=== PATIENT | female | born 1995 | race Caucasian/White ===

== ENCOUNTER 2016-05-04 12:38 | Inpatient (IN) | payer OTHER ==
[~2016-05-04] VITALS: Ht 177.8 cm; Wt 87.9 kg
--- NOTE | ~2016-05-04 | RESCARESUM ---
"PATIENT: BRITTNI SANCHEZ | | [facility] UNIT #: [id number] | [address] AGE/SEX: 20 F : [birth year] | [address] | [place] [address] ADMIT/REG DATE: 05/04/16 | ROOM: [facility] LOC: ADTC | ADTC | Summary of Residential Care Primary [facility] Date of Admission: 05/04/16 Date of Discharge: 05/05/16 Referral Source: [facility] Primary Care Provider Prior to Admission: no doctor listed Admitting Diagnosis: 304.40 Stimulant use disorder-severe, 304.30 Cannabis use disorder- moderate, 305.00 Alcohol use disorder-mild, and 305.10 Tobacco use disorder Per doctors H&P-Spvfpvip-vtpcdtm mood disorder, Major depressive disorder, recurrent, PTSD by history, and Generalized anxiety disorder. Discharge Diagnosis: unchanged Goals Achieved: Client arrived at treatment on 05/04/16 and left AMA by mid day on 05/05/16. She did not successfully complete treatment but had been seen by her counselor 2x, one for her initial appointment and the 2nd on the day she left because she wanted to leave treatment reporting that she doesn't want to hear repetitive information again and she misses her grandma. She denied being suicidal, so counselor did do EMDR to help with relaxation and client reported she felt better. She did sneak out of treatment later that afternoon. Continued Obstacles to Sobriety/Relapse Issues: lack of commitment to treatment/recovery, lack of willingness to follow the MHB requirements, apparent anxiety, missing her grandmother and/or drug cravings. Unresolved Mental health issues possibly due to trauma/PTSD. Family Issues Addressed: no family involvement but client requested to live with her grandmother. x Individual Therapy x Group Therapy x Educational Series on Substance Abuse Parents/Significant Others Attended Family Program Acute Medical Problems During the Course of Treatment Transferred to Hospital During the Course of Treatment Accepting of Substance Abuse Problem x Non-accepting of Substance Abuse Problem Required Psychological or Psychiatric Consultation During the Course of Treatment Completed AA Step # (none) During This Level of Care Significant Incidences During Treatment: client left AMA within 36 hours. Reason For Discharge: PATIENT: BRITTNI SANCHEZ | | [facility] UNIT #: [id number] | [address] AGE/SEX: 20 F : [birth year] | [address] | [place] [address] ADMIT/REG DATE: 05/04/16 | ROOM: [facility] LOC: ADTC | ADTC | Summary of Residential Care Completed Residential TX Goals and Ready For Next Level of Care x Left Tx Against Medical Advice/Treatment Goals Not Complete Completed Residential Tx Goals But Refusing Continuing Care Recommendations Discharged Due to Noncompliance/Treatment Goals not Completed Discharged Earlier Than Planned Due to: Continuing Care Plan/Recommendations: Intensive Partial Care Sponsor Partial Care AA Meetings/NA Meetings Outpatient Co-dependency Services Therapeutic Community 1/2 Way House 3/4 Way House x Mental Health Therapy Marriage Counseling x Other Specific Continuing Care Plan: Client appears to need to be stabilized mentally and attend a Treatment Center that is Dual long-term and may need to be a lock up facility as she has walked out of treatment 3x in past few months. PRIMARY COUNSELOR: Camilla Vitale"
--- NOTE | 2016-05-04 13:25 | NUR ---
ADMISSION NOTE Rights/Responsibilities: Copy given and explained to client. Signed and accepted by client. Client oriented to physical lay out of the ADTC unit, given Big Book and admission packet. A Fitz was assigned. Laquita Client is a 20yr old single female. Came to tx from [facility] where she has been for the past 14 days. Lives in [place], [place]. DOC, Meth, last used 04/22/16, two grams daily. No allergies, Nurse knows about meds. Mother will participate in tx. Was searched no contraband found. Initial paperwork given and guidelines gone over. Doctor was notified.
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
--- NOTE | 2016-05-04 16:43 | NUR ---
Recovery 101 1 hr/ Clients discussed fundamental tools and what is important to work a strong recovery program such as: 12 steps, getting and using a sponsor, meetings/home group, read C.A.L., H.O.W./being honest, service work, HP concepts/spirituality, opening up, slogans, serenity prayer, etc. Also discussed the balance, recovery as way of life, 85% is the living problem and why people still go to meetings for their lifetime.
--- NOTE | 2016-05-04 23:47 | NUR ---
Tech Note: Client attended N.A.Meeting. SE: Coming to treatment
--- NOTE | 2016-05-04 23:59 | NUR ---
Education Note: 1 hour lecture on communication given by counselor.
--- NOTE | 2016-05-05 04:13 | NUR ---
Bed Note: client was in bed with eyes closed and no distress at all bed checks.
--- NOTE | 2016-05-05 10:00 | NUR ---
IS 1 hr/ This counselor met with client who was in crisis and planning to leave, did discuss how this would hurt her and because of being a MHB Commitment and in and out of 3 treatments without completing that she would likely have to go to long-term dual program or even lock up facility if unwilling to complete a treatment. Client was willing to stay she stated, but within 20 minutes she was packing her bags so counselor offered to do EMDR therapy with her and she was relieved that she could do it now, she had asked counselor yesterday how soon can we start? and counselor said maybe by 2nd week, but did make time for her today and she responded well to Safe-Place relaxation and was praised for being good candidate for EMDR therapy. (After session client went to group which seemed like she might stay but ended up missing by mid afternoon or early evening, had snuck out of treatment center.)
--- NOTE | 2016-05-05 11:30 | NUR ---
GROUP 1.5 HRS. 1:10 Client was oriented to purpose and rules of group. She stated she has a lot of anxiety. She is tearful off and on and received a lot of postive support and encouragement from peers. Group discussion on learning to deal with feelings approrpriately. Group read pg. 62 of ALCOHOLICS ANONYMOUS and addressed issues of self-centeredness and being driven by ..."fear, self-delusion, self-seeking and self-pity".
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
--- NOTE | 2016-05-05 17:40 | NUR ---
ech Note: Client is working on Getting Started.
--- NOTE | 2016-05-05 19:31 | NUR ---
DISCHARGE NOTE Clt left AMA without telling staff or peers anything about leaving. Clt had left bewteen 4-5 PM. Leaving lugguage and personal items behind on unit and were packed and put into storage closet.
--- NOTE | 2016-05-06 09:15 | NUR ---
FAXED INFORMATION TO [facility] AND CALLED, The Court Transcriber said she will take information over to Employment Programs Analyst immediately as counselor said she was very anxious and needs to be found as soon as possible. She had denied being suicidal with this counselor on 05/05/16, she voiced she is just sick of the repetition of treatment again, and missing her grandmother.
--- NOTE | 2016-06-15 11:06 | DS ---
ADMIT: 05/04/2016 RM/LOC: [facility] MR#: [id number] [address] [address] BRITTNI SANCHEZ [address] [place] [id number] General Discharge Summary SEX: F AGE: 20 : 1995 ADMISSION DATE: 05/04/2016 DISCHARGE DATE: 05/05/2016 ADMITTING DIAGNOSIS: As per history and physical. FINAL DIAGNOSES: 1. Stimulant/methamphetamine use disorder, severe. 2. Cannabis use disorder, moderate. 3. Alcohol use disorder, mild. 4. Chemical-induced mood disorder. 5. Major depressive disorder, recurrent. 6. Post-traumatic stress disorder by history. 7. Generalized anxiety disorder. 8. Tobacco use disorder. COMPLICATIONS: None. OPERATIONS: None. CLINICAL HISTORY: The patient is a 20-year-old white female, admitted to the residential care program for treatment of her methamphetamine use disorder, as well as cannabis use disorder and past opioid use disorder. The patient comes to treatment after having been at [facility] for psychiatric treatment and evaluation. For details of her pattern of usage and problems associated with her ongoing substance abuse and chemical dependency, please see the clinical history portion of the dictated history and physical. Do note that the patient is a mental health board commitment to the treatment. LABORATORY AND X-RAY SUMMARY: None performed. HOSPITAL COURSE: The patient was admitted to the residential care program on 05/04/2016. She left AMA on her second day of treatment, 05/05/2016. She arrived to treatment as noted on 05/04/2016, met with her primary counselor, JOHN Gao, [facility]. By mid day on 05/05/2016, she walked out AMA. She did not accomplish any of her treatment goals. She had just got involved in both individual and group therapy. She was given the educational series on substance abuse, but had no time to work on any of the assignments. She was non-accepting of her substance abuse problem. She was very argumentative from the start, noting that she did not want to hear repetitive information again and again. She did have one EMDR session with her counselor. The patient walked away from treatment or snuck away from the treatment program later on the afternoon of 05/05/2016. While in treatment, none of her treatment goals were accomplished. She left AMA before any progress could be made. Her condition at discharge was unchanged. It appears that she is still not stable from a psychiatric standpoint. It was recommended that she have further psychiatric treatment and evaluation or consider placement at a dual diagnosis program. It was felt that she would benefit from a long-term dual diagnosis ADMIT: 05/04/2016 RM/LOC: [facility] MR#: [id number] [address] [address] BRITTNI SANCHEZ [address] [place] [address] General Discharge Summary SEX: F AGE: 20 : 1995 program and/or needs to be in a Lock-up Facility. CONDITION AT DISCHARGE: Unchanged. PROGNOSIS: Poor. At discharge, she left without any arrangements for aftercare. She did not arrange for any of her continued psychotropic medications that had been started while she was at [facility] prior to coming to treatment. She was strongly encouraged to continue on her psych medications but when she walked away from the program, she took none of these with her. Once again, as noted, condition unchanged. Prognosis, poor. Ritesh Bills MD/ [facility] JOB #: [id number] CC: Ritesh Bills MD, Attending Physician NO FAMILY PHYSICIAN, Family Physician
== END 2016-05-05 17:20 | disposition left against medical advice (07) | DRG 894 ==
LOC: ADTC 12:38
PROVIDERS: ADMIT Family Medicine
PROC: HZ34ZZZ Individual Counseling for Substance Abuse Treatment, Interpersonal (ICD-10-PCS; principal; 2016-05-04)
DX: F15.20 Other stimulant dependence, uncomplicated (principal); F19.24 Other psychoactive substance dependence with psychoactive substance-induced mood disorder; F12.20 Cannabis dependence, uncomplicated; F10.10 Alcohol abuse, uncomplicated; F41.1 Generalized anxiety disorder; F17.210 Nicotine dependence, cigarettes, uncomplicated; F43.10 Post-traumatic stress disorder, unspecified; F31.9 Bipolar disorder, unspecified; Z59.0 Homelessness; Z81.1 Family history of alcohol abuse and dependence; Z65.3 Problems related to other legal circumstances